=== PATIENT | male | born 1960 | race Caucasian/White ===

== ENCOUNTER 2024-03-01 10:45 | Outpatient (CLI) | payer MEDICAID | END 2024-03-01 23:59 | disposition home or self-care (01) | LOC: RAD 10:45 | PROVIDERS: ATTEND Student in an Organized Health Care Education/Training Program | DX: Z12.2 Encounter for screening for malignant neoplasm of respiratory organs (principal); I51.7 Cardiomegaly; I25.10 Atherosclerotic heart disease of native coronary artery without angina pectoris; I70.0 Atherosclerosis of aorta; Z87.891 Personal history of nicotine dependence | CPT/HCPCS: 71271 ==

== ENCOUNTER 2025-02-26 09:29 | Outpatient (CLI) | payer MEDICAID ==
--- NOTE | 2025-02-26 11:01 | RADIOLOGY REPORT ---
ULTRASOUND SOFT TISSUE HEAD AND NECK CLINICAL INDICATION: THYROTOXICOSIS, UNSP WITHOUT THYROTOXIC CRISIS OR STORM TECHNIQUE: Multiple real time sonographic images of the thyroid were obtained. Comparison: None FINDINGS: The right thyroid gland measures 4.2 x 1.1 x 2.2 cm. The left thyroid gland measures approximately 4.6 x 2.7 x 1.9 cm. The isthmus measures 0.2 cm. Hypoechoic nodule in the left upper pole measures 0.4 cm, TR 4. IMPRESSION: 0.4 cm TR 4 nodule in the left upper pole thyroid. [employer] TI-RADS Categories and Recommendations (2017): TR1: 0 points, Benign, No FNA TR2: 2 points, Not suspicious, No FNA TR3: 3 points, Mildly suspicious, FNA if > or = 2.5 cm, Follow if > or = 1.5 cm TR4: 4-6 points, Moderately Suspicious, FNA if > or = 1.5 cm, Follow if > or = 1.0 cm TR5: 7+ points, Highly Suspicious, FNA if > or = 1.0 cm, Follow if > or = 0.5 cm Follow-up ultrasound guidelines: TR5: yearly for 5 years, if no growth or change in TI-RADS level TR4: at 1, 2, 3 and 5 years, if no growth or change in TI-RADS level TR3: at 1, 3 and 5 years, if no growth or change in TI-RADS level If increased but below threshold for FNA, repeat in one year. Source: ACR Thyroid Imaging, Reporting and Data System (TI-RADS): White Paper of the ACR TI-RADS Committee. Thierry et al., J Am Anita Radiol 2017;14:587-595.
== END 2025-02-26 23:59 | disposition home or self-care (01) ==
LOC: RAD 09:29
PROVIDERS: ATTEND Student in an Organized Health Care Education/Training Program
DX: E04.1 Nontoxic single thyroid nodule (principal); E05.90 Thyrotoxicosis, unspecified without thyrotoxic crisis or storm
CPT/HCPCS: 76536

== ENCOUNTER 2025-09-29 13:34 | Outpatient (CLI) | payer MEDICAID ==
--- NOTE | 2025-09-29 16:39 | RADIOLOGY REPORT ---
CLINICAL HISTORY: PERSONAL HISTORY OF NICOTINE DEPENDENCE TECHNIQUE: CT of the chest was performed without intravenous contrast. This exam was performed according to our departmental dose optimization program. Up-to-date CT equipment and radiation dose reduction techniques are utilized as appropriate. COMPARISON: CT CT CHEST LOW DOSE on DOS: 03/01/24 FINDINGS: Lower Neck: Unremarkable Axilla, Mediastinum and Lisbeth: Sliding-type hiatal hernia. No thoracic lymphadenopathy although there is limited evaluation of the lisbeth in the absence of intravenous contrast. Heart and Great Vessels: Heart size is normal with trace pericardial fluid. Mild ectasia of the aortic root measuring 3.9 cm on series 601, image 48. The remainder of the thoracic aorta is normal in caliber with mild calcified atherosclerotic plaque. The central pulmonary arteries are normal caliber. 3- vessel calcified coronary artery disease up to moderate in the left anterior descending coronary artery. Airway, Lungs and Pleura: Trachea and central airways are patent. Small amount of inspissated secretions in the upper trachea. There is mild biapical pleural- parenchymal scarring. There is mild centrilobular emphysema. No suspicious pulmonary nodule, airspace consolidation, or pleural effusion. Linear bibasilar scarring or atelectasis. Upper Abdomen: Unremarkable. Chest Wall and Osseous Structures: No destructive osseous lesion. IMPRESSION: 1. Mild centrilobular emphysema. 2. No suspicious pulmonary nodule. Lung rads 1. Follow-up surveillance low-dose CT chest recommended in 1 year for re-evaluation. 3. There is 3-vessel calcified coronary artery disease up to moderate in the left anterior descending coronary artery. 4. Ectasia of the aortic root measuring 3.9 cm. Radiation optimization: All CT scans at this facility use at least one of these dose optimization techniques: automated exposure control mA and/or kV adjustment per patient size (includes targeted exams where dose is matched to clinical indication) or iterative reconstruction.
== END 2025-09-29 23:59 | disposition home or self-care (01) ==
LOC: RAD 13:34
PROVIDERS: ATTEND Student in an Organized Health Care Education/Training Program
DX: Z12.2 Encounter for screening for malignant neoplasm of respiratory organs (principal); K44.9 Diaphragmatic hernia without obstruction or gangrene; I70.0 Atherosclerosis of aorta; I25.10 Atherosclerotic heart disease of native coronary artery without angina pectoris; J98.4 Other disorders of lung; Z87.891 Personal history of nicotine dependence; J43.2 Centrilobular emphysema; I77.819 Aortic ectasia, unspecified site
CPT/HCPCS: 71271